=== PATIENT | female | born 1950 | race Caucasian/White ===

== ENCOUNTER 2017-09-02 08:21 | Outpatient (CLI) | payer MEDICARE ==
--- NOTE | 2017-09-02 11:28 | MMO ---
BILATERAL SCREENING MAMMOGRAMS: HISTORY: Screening. COMPARISON: Mammograms from 2017 and 2016. TECHNIQUE: Bilateral screening CC and MLO mammograms performed with computer aided detection. FINDINGS: Benign appearing calcifications in both breasts. No suspicious mass, architectural distortion, or microcalcification. IMPRESSION: BI-RADS Category 2: Benign findings. Continued screening recommended. POS: RENETAT
== END 2017-09-02 08:22 | disposition home or self-care (01) ==
LOC: SCSMAMMO 08:21
PROVIDERS: ATTEND Internal Medicine Hematology & Oncology
DX: Z12.31 Encounter for screening mammogram for malignant neoplasm of breast (principal)
CPT/HCPCS: 77067

== ENCOUNTER 2017-12-02 07:54 | Outpatient (CLI) | payer MEDICARE | END 2017-12-02 07:55 | disposition home or self-care (01) | LOC: BICMAMMO 07:54 | PROVIDERS: ATTEND Family Medicine | DX: Z13.820 Encounter for screening for osteoporosis (principal); Z78.0 Asymptomatic menopausal state; M85.88 Other specified disorders of bone density and structure, other site | CPT/HCPCS: 77080 ==

== ENCOUNTER 2018-09-09 07:44 | Outpatient (CLI) | payer MEDICARE ==
--- NOTE | 2018-09-09 10:48 | MMO ---
Bilateral MAMMO Bilat Screen [facility]. CLINICAL HISTORY: Patient is 68 years old and is seen for screening. The patient has the following family history of breast cancer: mother, in her 20's; paternal grandmother, in her 70's and maternal aunt, at age 54, OVARIAN. 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 The patient has a history of left Ultrasound Guided Core Biopsy in June,, bilateral Excisional Biopsy in 1990 - benign and left Lumpectomy in 2004 - malignant. VIEWS: The views performed were: bilateral craniocaudal with tomosynthesis and bilateral mediolateral oblique with tomosynthesis. FILMS COMPARED: The present examination has been compared to prior imaging studies performed at [facility] on 09/16/1994, 09/30/1995, 12/30/1999, 06/19/2005, 06/25/2014, 07/15/2015, 07/17/2016 and 09/02/2017. MAMMOGRAM FINDINGS: The breasts are heterogeneously dense, which could obscure a lesion on mammography. Finding 1: Benign calcifications are noted bilaterally. No suspicious calcifications or masses are seen. Finding 2: There is a post-surgical scar seen in the left breast. IMPRESSION: ALL ABOVE FINDINGS ARE BENIGN. A ROUTINE FOLLOW-UP MAMMOGRAM IN 1 YEAR IS RECOMMENDED. THE RESULTS OF THIS EXAM WERE SENT TO THE PATIENT. ACR BI-RADS Category 2 - Benign finding MAMMOGRAPHY NOTE: 1. A negative mammogram report should not delay a biopsy if a dominant of clinically suspicious mass is present. 2. Approximately 10% to 15% of breast cancers are not detected by mammography. 3. Adenosis and dense breasts may obscure an underlying neoplasm.
== END 2018-09-09 07:45 | disposition home or self-care (01) ==
LOC: BICMAMMO 07:44
PROVIDERS: ATTEND Obstetrics & Gynecology
DX: Z12.31 Encounter for screening mammogram for malignant neoplasm of breast (principal); R92.1 Mammographic calcification found on diagnostic imaging of breast; Z86.000 Personal history of in-situ neoplasm of breast; Z98.890 Other specified postprocedural states; Z80.3 Family history of malignant neoplasm of breast
CPT/HCPCS: 77063; 77067

== ENCOUNTER 2021-07-07 12:36 | Outpatient (CLI) | payer MEDICARE ==
[2021-07-07 15:15] LABS: #Basophils 0.1 10x3/uL (0.0-0.2); #Eosinphils 0.1 10x3/uL (0.0-0.5); #Monocytes 0.6 10x3/uL (0.0-1.1); #Neutrophils 3.1 10x3/uL (1.5-8.4); %Basophils 0.6 % (0.0-2.0); %Eosinophils 1.2 % (0.0-6.0); %Lymphocytes 53.3 % (18.0-47.0); %Monocytes 6.8 % (0.0-10.0); Hemoglobin 14.1 g/dL (12.0-15.5); Mean Corpuscular HGB CONC 31.9 g/dL (32.0-36.0); Mean Corpuscular Hemoglobin 30.5 pg (27.0-33.0); Mean Corpuscular Volume 95.5 fl (81.6-98.3); Mean Platelet Volume 10.2 fl (7.4-10.4); Platelet Count 358 10x3/uL (150-450); RBC Distribution Width 13.1 % (11.5-14.5); Red Blood Cell (RBC) Count 4.63 10x6/uL (3.90-5.03); White Blood Cell (WBC) Count 8.1 10x3/uL (3.5-10.5)
[2021-07-07 15:33] LABS: Anion Gap 15 mmol/L (10-20); BUN (Urea Nitrogen) 14 mg/dL (9.8-20.1); Calc. Creatinine Clearance 0 mL/min (70-130); Calcium 10.4 mg/dL (7.8-10.44); Carbon Dioxide 26 mmol/L (23-31); Chloride 105 mmol/L (98-107); Glucose 87 mg/dL (83-110); Potassium 4.5 mmol/L (3.5-5.1); Sodium 141 mmol/L (136-145)
[2021-07-07 16:18] LABS: Band 1 % (5-11); Lymphocytes 26 % (21-51); Monocytes 7 % (0-10); Neutrophil 37 % (42-75); Reactive Lymphocytes 29 % (0-10)
[2021-07-07 16:19] LABS: Platelet Morphology Comment Appears Adequate
[2021-07-08 11:36] LABS: SARS-CoV-2 PCR by NAA Not Detected (NotDetected)
== END 2021-07-07 12:37 | disposition home or self-care (01) ==
LOC: LABBT 12:36
PROVIDERS: ATTEND Specialist
DX: Z01.818 Encounter for other preprocedural examination (principal); R59.9 Enlarged lymph nodes, unspecified; Z85.3 Personal history of malignant neoplasm of breast; Z20.822 Contact with and (suspected) exposure to COVID-19
CPT/HCPCS: 80048; 85025; 93005; U0003; U0005; 93010

== ENCOUNTER 2021-07-10 07:38 | Day surgery (SDC) | payer MEDICARE ==
[2021-07-03 12:16] VITALS: BMI 26.2
[2021-07-10] MEDS ORDERED: Ketorolac Tromethamine 30 MG/ML VIAL ONE (07:58)
[2021-07-10] MEDS ORDERED: Acetaminophen 500 MG TAB ONE (07:58)
[2021-07-10] MEDS ORDERED: ceFAZolin 2 GM/DEX 5% 100 ML BAG ONE (07:58)
[2021-07-10] MEDS ORDERED: Sodium Chloride 0.9% 10 ML ONE (10:38)
[2021-07-10] MEDS ORDERED: Midazolam HCl 2 mg/2 ml Vial ONE (10:38)
[2021-07-10] MEDS ORDERED: HYDROmorphone 2 MG/ML VIAL ONE (10:38)
[2021-07-10] MEDS ORDERED: Bupivacaine PF 0.5% 30 ML VIAL ONE (10:39)
[2021-07-10] MEDS ORDERED: Isosulfan Blue 50 MG/5 ML VIAL ONE (10:39)
[2021-07-10] MEDS ORDERED: EPINEPHrine 1 MG/ML AMP ONE (10:39)
[2021-07-10] MEDS ORDERED: Sodium Bicarbonate 2.5 MEQ/5 ML VIAL ONE (10:42)
[2021-07-10] MEDS ORDERED: Dexamethasone 20 MG/5 ML VIAL ONE (11:10)
[2021-07-10] MEDS ORDERED: Phenylephrine 10 MG/ML VIAL ONE (11:10)
[2021-07-10] MEDS ORDERED: Lidocaine 1% PF 5 ML VIAL ONE (11:10)
[2021-07-10] MEDS ORDERED: PROPOFOL 200 MG/20 ML VIAL ONE (11:10)
[2021-07-10] MEDS ORDERED: Ondansetron PF 4 MG/2 ML Vial ONE (11:10)
[2021-07-10] MEDS ORDERED: HYDROcodone/Acetaminophen 5/325 mg Tablet ONE (13:36)
== END 2021-07-10 14:00 | disposition home or self-care (01) ==
LOC: SDC 07:38
PROVIDERS: ATTEND Specialist
PROC: 07B50ZX Excision of Right Axillary Lymphatic, Open Approach, Diagnostic (ICD-10-PCS; principal; 2021-07-10)
DX: C50.911 Malignant neoplasm of unspecified site of right female breast (principal); C77.3 Secondary and unspecified malignant neoplasm of axilla and upper limb lymph nodes; Z17.0 Estrogen receptor positive status [ER+]; Z79.899 Other long term (current) drug therapy; Z91.048 Other nonmedicinal substance allergy status
CPT/HCPCS: 38525; C1889; 88184; 88305; 88341; 88342; J0171; J1100; J1170; J1885; J2250; J2370; J2405; J2704; Q9968; S0020

== ENCOUNTER 2021-07-22 13:50 | Outpatient (CLI) | payer MEDICARE | END 2021-07-22 13:51 | disposition home or self-care (01) | LOC: BICMRI 13:50 | PROVIDERS: ATTEND Specialist | DX: R59.0 Localized enlarged lymph nodes (principal); Z85.3 Personal history of malignant neoplasm of breast | CPT/HCPCS: A9577; C8908 ==

== ENCOUNTER 2021-08-01 08:00 | Outpatient (CLI) | payer MEDICARE ==
[2021-08-01] MEDS ORDERED: Magnevist 469MG/ML 20 ML VIAL ONE (09:36)
== END 2021-08-01 08:01 | disposition home or self-care (01) ==
LOC: PET 08:00
PROVIDERS: ATTEND Internal Medicine Hematology & Oncology
DX: C50.811 Malignant neoplasm of overlapping sites of right female breast (principal); I67.82 Cerebral ischemia; G93.0 Cerebral cysts; R59.0 Localized enlarged lymph nodes; C79.81 Secondary malignant neoplasm of breast; C77.3 Secondary and unspecified malignant neoplasm of axilla and upper limb lymph nodes; Z98.890 Other specified postprocedural states
CPT/HCPCS: 70553; 78815; A9552; A9579

== ENCOUNTER 2021-08-05 09:10 | Outpatient (CLI) | payer MEDICARE ==
[2021-08-05 10:54] LABS: #Basophils 0.1 10x3/uL (0.0-0.2); #Eosinphils 0.3 10x3/uL (0.0-0.5); #Monocytes 0.6 10x3/uL (0.0-1.1); #Neutrophils 2.5 10x3/uL (1.5-8.4); %Basophils 0.7 % (0.0-2.0); %Eosinophils 4.6 % (0.0-6.0); %Lymphocytes 49.8 % (18.0-47.0); %Monocytes 8.2 % (0.0-10.0); %Neutrophils 36.6 % (40.0-75.0); Hemoglobin 13.4 g/dL (12.0-15.5); Mean Corpuscular HGB CONC 31.2 g/dL (32.0-36.0); Mean Corpuscular Hemoglobin 30.1 pg (27.0-33.0); Mean Corpuscular Volume 96.6 fl (81.6-98.3); Platelet Count 327 10x3/uL (150-450); RBC Distribution Width 12.3 % (11.5-14.5); Red Blood Cell (RBC) Count 4.45 10x6/uL (3.90-5.03); White Blood Cell (WBC) Count 6.7 10x3/uL (3.5-10.5)
[2021-08-05 11:19] LABS: Anion Gap 16 mmol/L (10-20); BUN (Urea Nitrogen) 11 mg/dL (9.8-20.1); Calc. Creatinine Clearance 0 mL/min (70-130); Calcium 10.2 mg/dL (7.8-10.44); Carbon Dioxide 27 mmol/L (23-31); Chloride 106 mmol/L (98-107); Glucose 95 mg/dL (83-110); Potassium 4.5 mmol/L (3.5-5.1); Sodium 144 mmol/L (136-145)
[2021-08-05 19:54] LABS: SARS-CoV-2 PCR by NAA Not Detected (NotDetected)
== END 2021-08-05 09:11 | disposition home or self-care (01) ==
LOC: LABBT 09:10
PROVIDERS: ATTEND Specialist
DX: Z01.812 Encounter for preprocedural laboratory examination (principal); C50.919 Malignant neoplasm of unspecified site of unspecified female breast; Z20.822 Contact with and (suspected) exposure to COVID-19
CPT/HCPCS: 80048; 85025; U0003; U0005

== ENCOUNTER 2021-08-07 07:55 | Day surgery (SDC) | payer MEDICARE ==
[2021-08-06 09:10] VITALS: BMI 26.2
[2021-08-07] MEDS ORDERED: Acetaminophen 500 MG TAB ONE (09:16)
[2021-08-07] MEDS ORDERED: Ketorolac Tromethamine 30 MG/ML VIAL ONE (09:16)
[2021-08-07] MEDS ORDERED: Fentanyl 100 MCG/2 ML VIAL ONE (12:22)
[2021-08-07] MEDS ORDERED: Isosulfan Blue 50 MG/5 ML VIAL ONE (12:29)
[2021-08-07] MEDS ORDERED: Bupivacaine 0.25% HCL 30 ML VIAL ONE (12:29)
[2021-08-07] MEDS ORDERED: Xylocaine 1% w/ Epi 1:100K 10 ML VIAL ONE (12:29)
[2021-08-07] MEDS ORDERED: ceFAZolin 2 GM/Dextrose 50 ML IVPB ONE (12:43)
[2021-08-07] MEDS ORDERED: PROPOFOL 200 MG/20 ML VIAL ONE (12:46)
[2021-08-07] MEDS ORDERED: Lidocaine 1% PF 5 ML VIAL ONE (12:46)
[2021-08-07] MEDS ORDERED: Ondansetron PF 4 MG/2 ML Vial ONE (12:46)
[2021-08-07] MEDS ORDERED: Dexamethasone 20 MG/5 ML VIAL ONE (12:46)
[2021-08-07] MEDS ORDERED: PHENYLEPHRINE-NS 100 MCG/ML 10 ML SYRINGE ONE (12:46)
[2021-08-07] MEDS ORDERED: ePHEDrine 50 MG/ML VIAL ONE (12:46)
== END 2021-08-07 14:52 | disposition home or self-care (01) ==
LOC: SDC 07:55
PROVIDERS: ATTEND Specialist
PROC: 0H9U3ZX Drainage of Left Breast, Percutaneous Approach, Diagnostic (ICD-10-PCS; principal; 2021-08-07)
PROC: 0JH60WZ Insertion of Totally Implantable Vascular Access Device into Chest Subcutaneous Tissue and Fascia, Open Approach (ICD-10-PCS; 2021-08-07)
PROC: 02HV33Z Insertion of Infusion Device into Superior Vena Cava, Percutaneous Approach (ICD-10-PCS; 2021-08-07)
DX: C50.812 Malignant neoplasm of overlapping sites of left female breast (principal); C50.811 Malignant neoplasm of overlapping sites of right female breast; C77.3 Secondary and unspecified malignant neoplasm of axilla and upper limb lymph nodes; Z17.0 Estrogen receptor positive status [ER+]; Z86.16 Personal history of COVID-19; Z79.811 Long term (current) use of aromatase inhibitors; Z79.899 Other long term (current) drug therapy; Z91.048 Other nonmedicinal substance allergy status
CPT/HCPCS: 19083; 19084 ×2; 36561; 71045; C1713; C1788; 88305; 88341; 88342; J0690; J1100; J1642; J1885; J2405; J2704; J3010; J3490; Q9968; S0020

== ENCOUNTER 2021-11-04 10:15 | Outpatient (CLI) | payer MEDICARE | END 2021-11-04 10:16 | disposition home or self-care (01) | LOC: PET 10:15 | PROVIDERS: ATTEND Internal Medicine Hematology & Oncology | DX: C50.811 Malignant neoplasm of overlapping sites of right female breast (principal); C50.812 Malignant neoplasm of overlapping sites of left female breast | CPT/HCPCS: 78815; A9552 ==

== ENCOUNTER 2021-11-10 10:58 | Outpatient (CLI) | payer MEDICARE ==
[2021-11-10 12:50] LABS: #Basophils 0.1 10x3/uL (0.0-0.2); #Monocytes 0.6 10x3/uL (0.0-1.1); #Neutrophils 3.2 10x3/uL (1.5-8.4); %Basophils 0.8 % (0.0-2.0); %Eosinophils 0.3 % (0.0-6.0); %Lymphocytes 36.1 % (18.0-47.0); %Monocytes 10.4 % (0.0-10.0); %Neutrophils 52.2 % (40.0-75.0); Hemoglobin 11.3 g/dL (12.0-15.5); Mean Corpuscular Volume 100.3 fl (81.6-98.3); Mean Platelet Volume 9.5 fl (7.4-10.4); Platelet Count 358 10x3/uL (150-450); RBC Distribution Width 16.4 % (11.5-14.5); Red Blood Cell (RBC) Count 3.64 10x6/uL (3.90-5.03); White Blood Cell (WBC) Count 6.1 10x3/uL (3.5-10.5)
[2021-11-10 13:15] LABS: Anion Gap 17 mmol/L (10-20); BUN (Urea Nitrogen) 12 mg/dL (9.8-20.1); Calc. Creatinine Clearance 0 mL/min (70-130); Calcium 9.7 mg/dL (7.8-10.44); Carbon Dioxide 23 mmol/L (23-31); Chloride 106 mmol/L (98-107); Glucose 95 mg/dL (83-110); Potassium 4.1 mmol/L (3.5-5.1); Sodium 142 mmol/L (136-145)
[2021-11-10 19:54] LABS: SARS-CoV-2 PCR by NAA Not Detected (NotDetected)
== END 2021-11-10 10:59 | disposition home or self-care (01) ==
LOC: LABBT 10:58
PROVIDERS: ATTEND Specialist
DX: Z01.818 Encounter for other preprocedural examination (principal); C50.919 Malignant neoplasm of unspecified site of unspecified female breast; Z20.822 Contact with and (suspected) exposure to COVID-19
CPT/HCPCS: 71046; 80048; 85025; 93005; U0003; U0005; 93010

== ENCOUNTER 2021-11-13 09:38 | Observation (INO) | payer MEDICARE ==
[2021-11-11 13:20] VITALS: BMI 36.7
[2021-11-13] MEDS ORDERED: Acetaminophen 500 MG TAB ONE (13:34)
[2021-11-13] MEDS ORDERED: Ketorolac Tromethamine 30 MG/ML VIAL ONE (13:34)
[2021-11-13] MEDS ORDERED: Lidocaine 1% w/Epinephrine 1:100K 20 ML VIAL ONE (14:59)
[2021-11-13] MEDS ORDERED: Bupivacaine 0.25% 10 ML VIAL ONE (14:59)
[2021-11-13] MEDS ORDERED: Isosulfan Blue 50 MG/5 ML VIAL ONE (14:59)
[2021-11-13] MEDS ORDERED: Ketamine 50 MG/ML (10ML VIAL) ONE (15:10)
[2021-11-13] MEDS ORDERED: fentaNYL Citrate/PF 100 MCG/2 ML SYRINGE ONE (15:10)
[2021-11-13] MEDS ORDERED: Phenylephrine 10 MG/ML VIAL ONE (15:22)
[2021-11-13] MEDS ORDERED: ceFAZolin (BATCH) 2 GM/100 ML BAG ONE ×2 (15:58)
[2021-11-13] MEDS ORDERED: Dexamethasone 20 MG/5 ML VIAL ONE (16:05)
[2021-11-13] MEDS ORDERED: PROPOFOL 200 MG/20 ML VIAL ONE (16:05)
[2021-11-13] MEDS ORDERED: Ondansetron PF 4 MG/2 ML Vial ONE (16:05)
[2021-11-13] MEDS ORDERED: Lidocaine 1% PF 5 ML VIAL ONE (16:05)
[2021-11-13] MEDS ORDERED: Promethazine HCl 25 MG/ML VIAL IVPB PRN (20:06)
[2021-11-13] MEDS ORDERED: Promethazine HCl 25 MG/ML VIAL IM PRN ×2 (20:06→20:08)
[2021-11-13] MEDS ORDERED: Ondansetron HCl/PF 4 MG/2 ML Vial IVP PRN (20:06)
[2021-11-13] MEDS ORDERED: HYDROmorphone 2 MG/ML VIAL SLOW IVP PRN (20:06)
[2021-11-13] MEDS ORDERED: Morphine 2 MG/ML VIAL SLOW IVP PRN (20:08)
[2021-11-13] MEDS ORDERED: Ondansetron PF 4 MG/2 ML Vial IVP PRN (20:08)
[2021-11-13] MEDS ORDERED: Dextrose 5% in Water 1,000 ML IV PRN (20:08)
[2021-11-13] MEDS ORDERED: Morphine 4 MG/ML VIAL SLOW IVP PRN (20:08)
[2021-11-13] MEDS ORDERED: HYDROcodone/Acetaminophen 7.5/325 mg Tablet PO PRN ×2 (20:08)
[2021-11-13] MEDS ORDERED: Dextrose 50% Abboject 50 ML SYRINGE SLOW IVP PRN (20:08)
[2021-11-13] MEDS ORDERED: hydrALAZINE 20 MG/ML VIAL SLOW IVP PRN (20:08)
[2021-11-13] MEDS ORDERED: Fentanyl 100 MCG/2 ML VIAL ONE (20:46)
[2021-11-13] MEDS: D5 1/2 NS w/20 mEq KCL 1,000 ML IV SCH (21:50)
[2021-11-13] MEDS: Famotidine 20 MG TAB PO SCH (21:57)
[2021-11-14] MEDS: Ketorolac Tromethamine 30 MG/ML VIAL IVP SCH ×2 (01:06→05:05)
[2021-11-14 05:30] LABS: #Monocytes 0.7 thou/uL (0.11-0.59); #Neutrophils 6.2 thou/uL (1.40-6.50); %Basophils 0.1 % (0.0-1.0); %Eosinophils 0.1 % (0.0-10.0); %Lymphocytes 22.5 % (21.0-51.0); %Neutrophils 69.3 % (42.0-75.0); Hemoglobin 10.6 g/dL (12.0-16.0); Mean Corpuscular HGB CONC 31.4 g/dL (32.0-36.0); Mean Corpuscular Hemoglobin 31.6 pg (27.0-31.0); Mean Platelet Volume 6.5 fL (7.4-10.4); Platelet Count 339 thou/uL (130-400); RBC Distribution Width 14.8 % (11.5-14.5); Red Blood Cell (RBC) Count 3.35 mill/uL (4.20-5.40)
[2021-11-14 05:50] LABS: Anion Gap 12 mmol/L (10-20); BUN (Urea Nitrogen) 10 mg/dL (9.8-20.1); Calc. Creatinine Clearance 83 mL/min (70-130); Calcium 8.8 mg/dL (7.8-10.44); Carbon Dioxide 23 mmol/L (23-31); Chloride 106 mmol/L (98-107); Glucose 116 mg/dL (83-110); Potassium 4.1 mmol/L (3.5-5.1); Sodium 137 mmol/L (136-145)
[2021-11-14] MEDS: Famotidine 20 MG TAB PO SCH (08:55)
[2021-11-14] MEDS: D5 1/2 NS w/20 mEq KCL 1,000 ML IV SCH (08:58)
[2021-11-14 11:44] VITALS: BP 120/70; TEMP 98.3
== END 2021-11-14 12:05 | disposition home or self-care (01) ==
LOC: SDC 09:38 → SURG A 20:00
PROVIDERS: ADMIT Specialist; ATTEND Specialist
PROC: 0HTV0ZZ Resection of Bilateral Breast, Open Approach (ICD-10-PCS; principal; 2021-11-13)
PROC: 07T50ZZ Resection of Right Axillary Lymphatic, Open Approach (ICD-10-PCS; 2021-11-13)
DX: C50.912 Malignant neoplasm of unspecified site of left female breast (principal); C77.3 Secondary and unspecified malignant neoplasm of axilla and upper limb lymph nodes; N60.21 Fibroadenosis of right breast; Z17.0 Estrogen receptor positive status [ER+]; Z86.16 Personal history of COVID-19; Z77.22 Contact with and (suspected) exposure to environmental tobacco smoke (acute) (chronic); Z79.899 Other long term (current) drug therapy; Z91.048 Other nonmedicinal substance allergy status
CPT/HCPCS: 19303; 19307; 38900; 78195; 80048; 85025; 96374; 96376; 97139; A9541; C1713; G0378 ×2; Q9968; 36415; 88309; J0690; J1100; J1885; J2370; J2405; J2704; J3010; J3480; S0020

== ENCOUNTER 2022-04-17 13:28 | Inpatient (IN) | payer MEDICARE ==
[2022-04-17 14:04] LABS: #Monocytes 0.2 thou/uL (0.11-0.59); #Neutrophils 5.5 thou/uL (1.40-6.50); %Basophils 0.3 % (0.0-1.0); %Eosinophils 0.3 % (0.0-10.0); %Lymphocytes 34.3 % (21.0-51.0); %Monocytes 2.4 % (0.0-10.0); %Neutrophils 62.8 % (42.0-75.0); Hemoglobin 12.6 g/dL (12.0-16.0); Mean Corpuscular Hemoglobin 30.4 pg (27.0-31.0); Mean Corpuscular Volume 94.8 fL (78.0-98.0); Mean Platelet Volume 7.3 fL (7.4-10.4); Platelet Count 219 thou/uL (130-400); RBC Distribution Width 14.6 % (11.5-14.5); Red Blood Cell (RBC) Count 4.13 mill/uL (4.20-5.40); White Blood Cell (WBC) Count 8.7 thou/uL (4.8-10.8)
[2022-04-17 14:23] LABS: ALT (SGPT) 15 U/L (8-55); AST (SGOT) 17 U/L (5-34); Albumin 4.6 g/dL (3.4-4.8); Alkaline Phosphatase 84 U/L (40-110); Anion Gap 16 mmol/L (10-20); BUN (Urea Nitrogen) 18 mg/dL (9.8-20.1); Bilirubin, Total 0.5 mg/dL (0.2-1.2); Calc. Creatinine Clearance 0 mL/min (70-130); Calcium 10.3 mg/dL (7.8-10.44); Carbon Dioxide 23 mmol/L (23-31); Chloride 105 mmol/L (98-107); Estimated GFR 74; Globulin 3.4 g/dL (2.4-3.5); Glucose 111 mg/dL (83-110); Potassium 3.8 mmol/L (3.5-5.1); Sodium 140 mmol/L (136-145)
[2022-04-17] MEDS ORDERED: Ondansetron ODT 4 MG TAB PO PRN (19:24)
[2022-04-17] MEDS ORDERED: Acetaminophen 325 MG TAB PO PRN (19:24)
[2022-04-17] MEDS ORDERED: Ondansetron PF 4 MG/2 ML Vial IVP PRN (19:24)
[2022-04-17 20:18] LABS: Magnesium 1.8 mg/dL (1.6-2.6)
[2022-04-17 23:49] VITALS: BMI 24.7
[2022-04-18] MEDS ORDERED: Aspirin 325 mg Enteric Coated Tablet PO SCH (00:30)
[2022-04-18] MEDS ORDERED: Electrolyte Replacement Protocol 1 EACH FS SCH (00:45)
[2022-04-18] MEDS ORDERED: Magnesium 2 GM/50 ML(in water) 2 GM in Premix Bag 1 BAG IVPB SCH (00:45)
[2022-04-18 01:01] LABS: Magnesium 1.7 mg/dL (1.6-2.6)
[2022-04-18 01:05] LABS: Troponin I 0.052 ng/mL (< 0.028)
[2022-04-18 05:02] LABS: #Basophils 0.1 thou/uL (0.0-0.2); #Eosinphils 0.1 thou/uL (0.0-0.7); #Lymphocytes 2.4 thou/uL (1.20-3.40); #Monocytes 0.4 thou/uL (0.11-0.59); #Neutrophils 2.2 thou/uL (1.40-6.50); %Basophils 1.1 % (0.0-1.0); %Eosinophils 1.4 % (0.0-10.0); %Lymphocytes 46.6 % (21.0-51.0); %Monocytes 8.4 % (0.0-10.0); %Neutrophils 42.6 % (42.0-75.0); Hemoglobin 12.6 g/dL (12.0-16.0); Mean Corpuscular Hemoglobin 32.1 pg (27.0-31.0); Mean Corpuscular Volume 97.1 fL (78.0-98.0); Mean Platelet Volume 7.9 fL (7.4-10.4); Platelet Count 152 thou/uL (130-400); RBC Distribution Width 14.6 % (11.5-14.5); Red Blood Cell (RBC) Count 3.92 mill/uL (4.20-5.40); White Blood Cell (WBC) Count 5.3 thou/uL (4.8-10.8)
[2022-04-18 05:12] LABS: Anion Gap 15 mmol/L (10-20); BUN (Urea Nitrogen) 17 mg/dL (9.8-20.1); Calc. Creatinine Clearance 63 mL/min (70-130); Calcium 9.5 mg/dL (7.8-10.44); Carbon Dioxide 22 mmol/L (23-31); Chloride 107 mmol/L (98-107); Estimated GFR 73; Glucose 88 mg/dL (83-110); Potassium 3.6 mmol/L (3.5-5.1); Sodium 140 mmol/L (136-145)
[2022-04-18] MEDS: Letrozole 2.5 MG TAB PO SCH (09:41)
[2022-04-18] MEDS: Aspirin Chewable 81 MG TAB PO SCH (09:45)
[2022-04-18] MEDS: Enoxaparin Sodium 40 MG/0.4 ML SYRINGE SC SCH (09:45)
[2022-04-18] MEDS ORDERED: Doxycycline 100 MG CAP PO SCH (20:30)
[2022-04-18] MEDS ORDERED: METHYLPREDNISOLONE 4 MG PO SCH (22:15)
[2022-04-18] MEDS ORDERED: methylPREDNISolone 4 mg Tablet PO SCH ×2 (22:30→23:00)
[2022-04-19 05:51] LABS: Troponin I Less than 0.010 ng/mL (< 0.028)
[2022-04-19] MEDS ORDERED: methylPREDNISolone 4 mg Tablet PO SCH (08:00)
[2022-04-19] MEDS ORDERED: Magnesium 2 GM/50 ML(in water) 2 GM in Premix Bag 1 BAG IVPB SCH (08:00)
[2022-04-19] MEDS ORDERED: Doxycycline 100 MG CAP PO SCH (09:00)
[2022-04-19] MEDS: methylPREDNISolone 4 mg Tablet PO SCH ×4 (09:21→20:13)
[2022-04-19] MEDS: Enoxaparin Sodium 40 MG/0.4 ML SYRINGE SC SCH (09:22)
[2022-04-19] MEDS: Aspirin Chewable 81 MG TAB PO SCH (09:22)
[2022-04-19] MEDS: Letrozole 2.5 MG TAB PO SCH (09:22)
[2022-04-19] MEDS: Doxycycline 100 MG CAP PO SCH (20:13)
[2022-04-20 05:19] LABS: Magnesium 2.1 mg/dL (1.6-2.6)
[2022-04-20] MEDS ORDERED: methylPREDNISolone 4 mg Tablet PO SCH (08:00)
[2022-04-20] MEDS: Aspirin Chewable 81 MG TAB PO SCH (10:11)
[2022-04-20] MEDS: Letrozole 2.5 MG TAB PO SCH (10:12)
[2022-04-20] MEDS: Enoxaparin Sodium 40 MG/0.4 ML SYRINGE SC SCH (10:12)
[2022-04-20] MEDS: methylPREDNISolone 4 mg Tablet PO SCH ×3 (10:12→20:20)
[2022-04-20] MEDS: Doxycycline 100 MG CAP PO SCH (20:21)
[2022-04-21] MEDS ORDERED: CEFAZOLIN 1 GM VIAL ONE ×2 (06:41→06:49)
[2022-04-21] MEDS ORDERED: CEFAZOLIN 2 GM VIAL ONE (06:41)
[2022-04-21] MEDS ORDERED: Gentamicin 80 MG/2 ML VIAL ONE (06:41)
[2022-04-21] MEDS ORDERED: Lidocaine 1% (PF) 30 ML VIAL ONE (06:41)
[2022-04-21] MEDS ORDERED: Vancomycin 1.5 GRAM/300 ML BAG 1.5 GM in Premix Bag 1 BAG IVPB SCH (07:00)
[2022-04-21] MEDS ORDERED: methylPREDNISolone 4 mg Tablet PO SCH (08:00)
[2022-04-21] MEDS: Enoxaparin Sodium 40 MG/0.4 ML SYRINGE SC SCH (08:45)
[2022-04-21] MEDS: Aspirin Chewable 81 MG TAB PO SCH (08:45)
[2022-04-21] MEDS: Letrozole 2.5 MG TAB PO SCH (08:45)
[2022-04-21] MEDS: methylPREDNISolone 4 mg Tablet PO SCH ×2 (08:45→20:53)
[2022-04-21] MEDS ORDERED: FLU VACC QS2022-23(65YR UP)/PF 240 MCG/0.7 ML SYRINGE IM ONE (09:00)
[2022-04-21] MEDS: Doxycycline 100 MG CAP PO SCH (20:53)
[2022-04-22] MEDS ORDERED: methylPREDNISolone 4 mg Tablet PO SCH ×2 (08:00)
[2022-04-22] MEDS: Aspirin Chewable 81 MG TAB PO SCH (08:33)
[2022-04-22] MEDS: Letrozole 2.5 MG TAB PO SCH (08:33)
[2022-04-22] MEDS: Enoxaparin Sodium 40 MG/0.4 ML SYRINGE SC SCH (08:34)
[2022-04-22] MEDS: Doxycycline 100 MG CAP PO SCH (21:29)
[2022-04-23] MEDS: Aspirin Chewable 81 MG TAB PO SCH (09:11)
[2022-04-23] MEDS: Enoxaparin Sodium 40 MG/0.4 ML SYRINGE SC SCH (09:11)
[2022-04-23] MEDS: Letrozole 2.5 MG TAB PO SCH (09:12)
[2022-04-23 10:22] LABS: Hemoglobin 13.5 g/dL (12.0-16.0); Mean Corpuscular HGB CONC 33.1 g/dL (32.0-36.0); Mean Corpuscular Hemoglobin 31.6 pg (27.0-31.0); Mean Corpuscular Volume 95.7 fL (78.0-98.0); Mean Platelet Volume 6.9 fL (7.4-10.4); Platelet Count 243 thou/uL (130-400); RBC Distribution Width 14.9 % (11.5-14.5); Red Blood Cell (RBC) Count 4.27 mill/uL (4.20-5.40); White Blood Cell (WBC) Count 5.2 thou/uL (4.8-10.8)
[2022-04-23 10:36] LABS: Prothrombin Time 13.1 sec (12.0-14.7)
[2022-04-23 11:03] LABS: Anion Gap 15 mmol/L (10-20); BUN (Urea Nitrogen) 19 mg/dL (9.8-20.1); Calc. Creatinine Clearance 67 mL/min (70-130); Calcium 9.6 mg/dL (7.8-10.44); Carbon Dioxide 22 mmol/L (23-31); Chloride 101 mmol/L (98-107); Estimated GFR 78; Glucose 117 mg/dL (83-110); Potassium 3.5 mmol/L (3.5-5.1); Sodium 134 mmol/L (136-145)
[2022-04-23 12:12] VITALS: BP 116/57; TEMP 97.1
[2022-04-23] MEDS ORDERED: Potassium Chloride 20 MEQ TAB PO SCH (13:00)
== END 2022-04-23 14:43 | disposition short-term general hospital (02) | DRG 309 ==
LOC: ERS 13:28 → 2SW 19:28 → OBSVTOIN 04-18 16:20
PROVIDERS: ADMIT Hospitalist; ATTEND Family Medicine
DX: I44.2 Atrioventricular block, complete (principal); C79.9 Secondary malignant neoplasm of unspecified site; I50.22 Chronic systolic (congestive) heart failure; I24.8 Other forms of acute ischemic heart disease; I44.7 Left bundle-branch block, unspecified; Z20.822 Contact with and (suspected) exposure to COVID-19; Z88.8 Allergy status to other drugs, medicaments and biological substances; Z79.899 Other long term (current) drug therapy; Z88.1 Allergy status to other antibiotic agents; Z85.3 Personal history of malignant neoplasm of breast
CPT/HCPCS: 36415; 71045; 80048; 80053; 83735; 84443; 84484; 85025; 85027; 85610; 93005; 93306; 96372; 96374; G0378; J0690; J1580; J1650; J2001; J3370; J3475; U0003; U0005

== ENCOUNTER 2022-04-28 08:48 | Inpatient (IN) | payer MEDICARE, OTHER ==
[2022-04-27 13:05] VITALS: BMI 25.1
[2022-04-28] MEDS ORDERED: Vancomycin (BATCH) 1.5 GRAM/300 ML BAG ONE (09:13)
[2022-04-28] MEDS ORDERED: Iopamidol 370 76% 50 ML VIAL FS ONE (09:22)
[2022-04-28] MEDS ORDERED: Fentanyl 100 MCG/2 ML VIAL ONE (10:54)
[2022-04-28] MEDS ORDERED: Gentamicin 80 MG/2 ML VIAL ONE (10:54)
[2022-04-28] MEDS ORDERED: CEFAZOLIN 2 GM VIAL ONE (10:54)
[2022-04-28] MEDS ORDERED: Midazolam HCl 2 mg/2 ml Vial ONE ×2 (10:55→11:55)
[2022-04-28] MEDS ORDERED: Ketamine 50 MG/ML (10ML VIAL) ONE (11:55)
[2022-04-28] MEDS ORDERED: fentaNYL Citrate/PF 100 MCG/2 ML SYRINGE ONE (11:55)
[2022-04-28] MEDS ORDERED: Phenylephrine 10 MG/ML VIAL ONE (11:55)
[2022-04-28] MEDS ORDERED: Propofol 1,000 MG/100 ML VIAL IV ONE (11:55)
[2022-04-28] MEDS ORDERED: Lidocaine 1% (PF) 30 ML VIAL ONE (11:59)
[2022-04-28] MEDS ORDERED: ePHEDrine 50 MG/ML VIAL ONE (12:22)
== END 2022-04-28 18:39 | disposition home or self-care (01) | DRG 243 ==
LOC: SURG A 08:48
PROVIDERS: ADMIT Internal Medicine Cardiovascular Disease; ATTEND Internal Medicine Cardiovascular Disease
PROC: 0JH607Z Insertion of Cardiac Resynchronization Pacemaker Pulse Generator into Chest Subcutaneous Tissue and Fascia, Open Approach (ICD-10-PCS; principal; 2022-04-28)
PROC: 02H63JZ Insertion of Pacemaker Lead into Right Atrium, Percutaneous Approach (ICD-10-PCS; 2022-04-28)
PROC: 02HL3JZ Insertion of Pacemaker Lead into Left Ventricle, Percutaneous Approach (ICD-10-PCS; 2022-04-28)
PROC: 02HK3JZ Insertion of Pacemaker Lead into Right Ventricle, Percutaneous Approach (ICD-10-PCS; 2022-04-28)
DX: I44.2 Atrioventricular block, complete (principal); I42.8 Other cardiomyopathies; I50.22 Chronic systolic (congestive) heart failure; I44.7 Left bundle-branch block, unspecified; Z98.890 Other specified postprocedural states; Z85.3 Personal history of malignant neoplasm of breast
CPT/HCPCS: 33208; 33225; 71045; 93005; C1769; C1894; C1898; C1900; C2621; J1580; J2001; J2250; J2370; J2704; J3010; J3370; J3490; Q9967

== ENCOUNTER 2022-10-07 11:02 | Outpatient (CLI) | payer MEDICARE, OTHER | END 2022-10-07 11:03 | disposition home or self-care (01) | LOC: BICCT 11:02 | PROVIDERS: ATTEND Internal Medicine Hematology & Oncology | DX: C50.812 Malignant neoplasm of overlapping sites of left female breast (principal); C50.811 Malignant neoplasm of overlapping sites of right female breast; J90 Pleural effusion, not elsewhere classified; J98.4 Other disorders of lung; Z90.13 Acquired absence of bilateral breasts and nipples | CPT/HCPCS: 71260; 74177; 82565 ==

== ENCOUNTER 2022-11-09 07:30 | Day surgery (SDC) | payer MEDICARE, OTHER ==
[2022-11-06 11:05] VITALS: BMI 25.0
[2022-11-09] MEDS ORDERED: Iopamidol 370 76% 100 ML VIAL ONE (09:57)
== END 2022-11-09 09:07 | disposition home or self-care (01) ==
LOC: CCL 07:30
PROVIDERS: ATTEND Internal Medicine Cardiovascular Disease
PROC: B51N1ZZ Fluoroscopy of Left Upper Extremity Veins using Low Osmolar Contrast (ICD-10-PCS; principal; 2022-11-09)
DX: I87.8 Other specified disorders of veins (principal); I47.1 Supraventricular tachycardia; I44.2 Atrioventricular block, complete; I42.8 Other cardiomyopathies; Z85.3 Personal history of malignant neoplasm of breast; Z79.899 Other long term (current) drug therapy; Z88.8 Allergy status to other drugs, medicaments and biological substances; Z91.048 Other nonmedicinal substance allergy status; Z95.0 Presence of cardiac pacemaker
CPT/HCPCS: 75820; 87077; 87086; 87186

== ENCOUNTER 2023-11-09 10:35 | Outpatient (CLI) | payer MEDICARE, OTHER | END 2023-11-09 10:36 | disposition home or self-care (01) | LOC: BICMAMMO 10:35 | PROVIDERS: ATTEND Internal Medicine Hematology & Oncology | DX: Z13.820 Encounter for screening for osteoporosis (principal); M85.89 Other specified disorders of bone density and structure, multiple sites | CPT/HCPCS: 77080 ==